=== PATIENT | female | born 1980 | race Caucasian/White ===

== ENCOUNTER 2021-11-08 22:36 | Emergency (ER) | payer OTHER ==
[2021-11-09] MEDS ORDERED: Ketorolac Tromethamine 30 MG/ML VIAL ONE (00:05)
[2021-11-09] MEDS ORDERED: Lorazepam 2 MG/ML VIAL ONE (00:05)
== END 2021-11-09 02:05 | disposition home or self-care (01) ==
LOC: ERS 22:36
DX: S06.0X0A Concussion without loss of consciousness, initial encounter (principal); F17.290 Nicotine dependence, other tobacco product, uncomplicated; V43.52XA Car driver injured in collision with other type car in traffic accident, initial encounter; Y92.410 Unspecified street and highway as the place of occurrence of the external cause
CPT/HCPCS: 70450; 72125; 93005; 96374; 96375; J1885; J2060